=== PATIENT | male | born 1970 | race Two or more races ===

== ENCOUNTER 2016-12-01 23:01 | Emergency (ER) | payer OTHER ==
--- NOTE | ~2016-12-01 | CR126 ---
[facility] A Service of [facility] RADIOLOGY TEXT RESULTS PATIENT: DOMINIQUE RICHARDSON LOCATION: [facility] : 72 UNIT #: [id number] AGE: [address]: STEVE ALMAZAN APRN SEX: M ORDER DR: [id number] [facility]. [place], [place] [address] [id number] E MR#: [id number] Acc #: [id number] NAME: DOMINIQUE RICHARDSON : 1970 SEX: M STUDY DATE/TIME: 12/01/2016 23:25 UNIT: CFTX ROOM: STUDY DESCRIPTION: CR Foot Complete Min 3 View Lt Attending Physician: Steve Almazan Aprn Ordering Physician: Steve Almazan Aprn Primary Care Physician: No Primary Care Physician MEDICAL IMAGING REPORT This report is preliminary unless electronic signature is present EXAM Left foot, 3 views. COMPARISON None. INDICATIONS 46-year-old male with left ankle and foot pain after tripping and falling tonight. FINDINGS Bones of the foot are intact and anatomically aligned. There is minimal enthesopathy at the Achilles insertion of the calcaneus, better demonstrate on radiographs of the ankle on the same date. There is an oblique nondisplaced fracture through the distal fibula. IMPRESSION 1. No acute fracture or dislocation of the bones of the left foot. 2. Better demonstrated on radiographs of the left ankle on the same date, there is an oblique nondisplaced fracture of the distal fibula. Please see that report for full description of findings. Dictated by... Enoc Guajardo M.D. THIS IS AN ELECTRONICALLY VERIFIED REPORT Enoc Guajardo M.D. at 12/05/2016 7:41 PM BLM/gz TD: 12/02/2016 09:14 JOB #: [id number] MEDICAL IMAGING REPORT [facility] A Service [facility] RADIOLOGY TEXT RESULTS PATIENT: DOMINIQUE RICHARDSON LOCATION: [facility] : 72 UNIT #: [id number] AGE: [address]: STEVE ALMAZAN APRN SEX: M ORDER DR: CONCHITA
--- NOTE | ~2016-12-01 | CR20 ---
[facility] A Service of [facility] RADIOLOGY TEXT RESULTS PATIENT: DOMINIQUE RICHARDSON LOCATION: [facility] : 72 UNIT #: [id number] AGE: [address]: STEVE ALMAZAN APRN SEX: M ORDER DR: [id number] [facility]. [place], [place] [address] [id number] E MR#: [id number] Acc #: [id number] NAME: DOMINIQUE RICHARDSON : 1970 SEX: M STUDY DATE/TIME: 12/01/2016 23:23 UNIT: CFTX ROOM: STUDY DESCRIPTION: CR Ankle Min 3 Views Lt Attending Physician: Steve Almazan Aprn Ordering Physician: Steve Almazan Aprn Primary Care Physician: No Primary Care Physician MEDICAL IMAGING REPORT This report is preliminary unless electronic signature is present EXAM Left ankle, 3 views COMPARISON 3 views of the left foot on the same date. INDICATIONS 46-year-old male with left ankle pain after tripping and falling tonight. FINDINGS Bones are anatomically aligned. There is a longitudinal oblique fracture through the distal fibula and lateral malleolus which passes into the ankle mortise. This fracture line appears to be below the tibiofibular syndesmosis. However, there is questionable mild ankle mortise widening on the AP view and unstable injury cannot be excluded. Bones are otherwise intact. IMPRESSION Acute nondisplaced oblique fracture passing through the distal fibular shaft, through the lateral malleolus and into the ankle mortise. This fracture line appears to be below the tibiofibular syndesmosis. However, there appears to be widening at the medial ankle mortise and an unstable injury cannot be excluded. No dislocation. Dictated by... Enoc Guajardo M.D. THIS IS AN ELECTRONICALLY VERIFIED REPORT Enoc Guajardo M.D. at 12/03/2016 7:49 AM BLM/df TD: 12/02/2016 08:52 JOB #: [id number] [facility] A Service of [facility] RADIOLOGY TEXT RESULTS PATIENT: DOMINIQUE RICHARDSON LOCATION: [facility] #: [id number] : 72 UNIT #: [id number] AGE: [address]: STEVE ALMAZAN APRN SEX: M ORDER DR: MEDICAL IMAGING REPORT COPY
== END 2016-12-02 03:20 | disposition home or self-care (01) ==
LOC: CED 23:01
DX: S82.435A Nondisplaced oblique fracture of shaft of left fibula, initial encounter for closed fracture (principal); F17.210 Nicotine dependence, cigarettes, uncomplicated; W50.2XXA Accidental twist by another person, initial encounter; Y92.009 Unspecified place in unspecified non-institutional (private) residence as the place of occurrence of the external cause
CPT/HCPCS: 29515; 73610; 73630; 99283